=== PATIENT | female | born 1990 | race Hispanic/Latino ===

== ENCOUNTER 2022-08-18 05:26 | Emergency (ER) | payer SELFPAY ==
[~2022-08-18] VITALS: Ht 157.5 cm; Wt 61.2 kg
== END 2022-08-18 07:10 | disposition home or self-care (01) ==
LOC: FSED 05:30
DX: J10.1 Influenza due to other identified influenza virus with other respiratory manifestations (principal); F17.200 Nicotine dependence, unspecified, uncomplicated
CPT/HCPCS: 83518; 87400; 99282